=== PATIENT | male | born 1975 | race Hispanic/Latino ===

== ENCOUNTER 2018-07-31 21:18 | Emergency (ER) | payer BC, OTHER, SELFPAY | END 2018-07-31 23:06 | disposition home or self-care (01) | LOC: ERS 21:18 | DX: J06.9 Acute upper respiratory infection, unspecified (principal); E11.9 Type 2 diabetes mellitus without complications; F17.210 Nicotine dependence, cigarettes, uncomplicated; Z79.4 Long term (current) use of insulin | CPT/HCPCS: 87804; 99283 ==